=== PATIENT | male | born 2000 | race Caucasian/White ===

== ENCOUNTER 2020-12-13 20:42 | Emergency (ER) | payer OTHER ==
[~2020-12-13] VITALS: Ht 180.3 cm; Wt 83.2 kg
[2020-12-13] MEDS ORDERED: LIDOCAINE 1% MDV 20ML VIAL SC ONE (21:10)
[2020-12-13] MEDS ORDERED: CIPR-249 PO (21:51)
[2020-12-13 22:03] VITALS: BP 133/72
== END 2020-12-13 22:04 | disposition home or self-care (01) ==
LOC: M ED 20:42
DX: S91.311A Laceration without foreign body, right foot, initial encounter (principal); X58.XXXA Exposure to other specified factors, initial encounter; Y92.830 Public park as the place of occurrence of the external cause; Y93.89 Activity, other specified; Y99.8 Other external cause status

== ENCOUNTER 2021-07-13 18:30 | Emergency (ER) | payer OTHER ==
[~2021-07-13] VITALS: Ht 180.3 cm; Wt 79.5 kg
[~2021-07-13 18:30] MED LIST: CIPR-249 PO
[2021-07-13 21:30] LABS: RSV AMPLIFICATION NEGATIVE (NEGATIVE)
[2021-07-13] MEDS ORDERED: VENTAER INH (21:43)
[2021-07-13] MEDS ORDERED: TESS100C PO (21:43)
[2021-07-13 21:58] VITALS: BP 122/76
== END 2021-07-13 21:59 | disposition home or self-care (01) ==
LOC: M ED 18:30
DX: U07.1 COVID-19 (principal)